=== PATIENT | male | born 1965 | race Caucasian/White ===

== ENCOUNTER → 2018-02-17 | Outpatient (CLI) | payer OTHER | END | disposition home or self-care (01) | LOC: RAH 08:38 | PROVIDERS: ATTEND Internal Medicine Gastroenterology | DX: R10.13 Epigastric pain (principal) | CPT/HCPCS: 76700 ==

== ENCOUNTER → 2020-01-30 | Outpatient (CLI) | payer MEDICARE | END | disposition home or self-care (01) | LOC: RAH 07:53 | PROVIDERS: ATTEND Physical Medicine & Rehabilitation | DX: M47.26 Other spondylosis with radiculopathy, lumbar region (principal) | CPT/HCPCS: 72148; 72195 ==

== ENCOUNTER → 2023-06-15 | Outpatient (CLI) | payer BC | END | disposition home or self-care (01) | LOC: RAH 16:17 | PROVIDERS: ATTEND Physical Medicine & Rehabilitation | DX: M77.8 Other enthesopathies, not elsewhere classified (principal); M25.78 Osteophyte, vertebrae; M54.6 Pain in thoracic spine; M41.9 Scoliosis, unspecified; Z88.1 Allergy status to other antibiotic agents | CPT/HCPCS: 72074 ==